=== PATIENT | female | born 1990 | race Caucasian/White ===

== ENCOUNTER 2022-08-20 11:04 | Emergency (ER) | payer BC, SELFPAY ==
[2022-08-20 11:12] VITALS: BP 136/94; PULSE 96; RESP 18; TEMP 36.6; O2SAT 98
--- NOTE | 2022-08-20 11:13 | ED.DENTAL ---
HPI - Dental/Oral General Chief complaint: Dental/Oral Stated complaint: Rt mouth pain Time Seen by Provider: 08/20/22 11:15 Source: patient Mode of arrival: ambulatory Limitations: no limitations History of Present Illness HPI Narrative: Ms. Mark is a 32-year-old female patient presenting to the clinic today with complaints of right upper maxilla pain. She reports that this has been going on for 1-2 days. States that a filling fell out of her right upper posterior molar approximately 2 months ago and she feels as though this may be infected. She is noting a lot of sinus pressure as well as erythema in pain to the right maxilla/cheek. She denies any fever or chills. She has a dentist appointment on Tuesday however the dentist wanted her to come in and be evaluated to get antibiotics. Related Data Home Medications Medication Instructions Recorded Confirmed norethindrone 1.5 mg-ethinyl 1 tablet PO DAILY 03/04/21 08/20/22 estradiol 30 mcg(21)/iron 75 mg(7) tablet (Microgestin Fe 1.5/30 (28)) Allergies Allergy/AdvReac Type Severity Reaction Status Date / Time No Known Allergies Allergy Verified 08/20/22 11:13 Review of Systems Review of Systems: Pertinent positives per HPI. Patient denies any fever, chills, rash, headache, visual changes, dizziness, cough, runny nose, sore throat, shortness of breath, chest pain, palpitations, nausea, vomiting, diarrhea, constipation, abdominal pain, or any urinary issues. PMFSH Social History Social History Smoking status: Current every day smoker Substance use: never Comments At the time of my signature, I reviewed and agree with the nursing past medical, surgical, social, and family history. There is no relevant family history pertinent to the patient complaint. Exam Narrative: General: Well-developed, well nourished, in no apparent distress Head: Normocephalic, atraumatic Eyes: Pupils equally round and reactive to light bilaterally, EOM intact, sclera and conjunctive clear, no discharge, lids normal Ears: TMs intact and clear, ear canals clear, no drainage, grossly hearing normal. Nose: Nares patent, no discharge, no inflammation, no sinus tenderness. Mouth: Oropharynx without lesions or masses, good dentition, MMM. Mild erythema and swelling noted over right maxilla/cheek, no palpable abscess, tenderness to palpation #3 tooth Neck: Supple, trachea midline, no enlargement of anterior or posterior cervical nodes, no thyroid masses or goiter palpable. Cardio: Regular rate and rhythm, s1 and s2 normal, no murmur appreciated. Resp: Clear to auscultation bilaterally anteriorly and posteriorly, no rhonchi, rales, wheezing or rubs Course Course Emergency Course: Portions of this record may have been created with voice recognition software. Level of Care: Express Care Visit Vital Signs Vital signs: Vital Signs Temperature 36.6 C 08/20/22 11:12 Pulse Rate 96 08/20/22 11:12 Respiratory Rate 18 08/20/22 11:12 Blood Pressure 136/94 H 08/20/22 11:12 Pulse Oximetry 98 08/20/22 11:12 Oxygen Delivery Room Air 08/20/22 11:12 Temperature 36.6 C 08/20/22 11:14 Pulse Rate 96 08/20/22 11:14 Respiratory Rate 18 08/20/22 11:14 Blood Pressure 136/94 H 08/20/22 11:14 Pulse Oximetry 98 08/20/22 11:14 Oxygen Delivery Room Air 08/20/22 11:14 Vital signs reviewed MDM - Dental/Oral MDM Narrative Medical decision making narrative: At the time of visit patient is resting comfortably on the exam table. I suspect the patient has a toothache/infection to the right upper posterior molar. Prescription for Augmentin was sent to the pharmacy and supportive measures were discussed with the patient she voiced understanding of discharge instructions. Differential Diagnosis Differential diagnosis: Likely gingival abscess, dental caries, toothache and dental abscess Discharge Plan
[2022-08-20 11:14] VITALS: BP 136/94; PULSE 96; RESP 18; TEMP 36.6; O2SAT 98
== END 2022-08-20 11:22 | disposition home or self-care (01) ==
PROVIDERS: Emergency Provider Nurse Practitioner Family
DX: K08.89 Other specified disorders of teeth and supporting structures (principal); F17.200 Nicotine dependence, unspecified, uncomplicated
CPT/HCPCS: 99213; G0463